=== PATIENT | male | born 1995 | race Caucasian/White ===

== ENCOUNTER 2018-10-03 22:13 | Emergency (ER) | payer SELFPAY ==
[~2018-10-03] VITALS: Ht 198.1 cm; Wt 79.8 kg
[2018-10-03 22:24] VITALS: BP 130/88; Ht 198.1 cm; Wt 79.8 kg
== END 2018-10-03 22:43 | disposition left against medical advice (07) ==
LOC: ED 22:13
DX: Z53.21 Procedure and treatment not carried out due to patient leaving prior to being seen by health care provider (principal)

== ENCOUNTER 2018-10-03 23:56 | Emergency (ER) | payer OTHER ==
[~2018-10-03] VITALS: Ht 198.1 cm; Wt 80.7 kg
[2018-10-04 00:06] VITALS: Ht 198.1 cm; Wt 80.7 kg
[2018-10-04 02:30] VITALS: BP 125/87
== END 2018-10-04 02:30 | disposition home or self-care (01) ==
LOC: ED 23:56
DX: F15.10 Other stimulant abuse, uncomplicated (principal); F17.210 Nicotine dependence, cigarettes, uncomplicated

== ENCOUNTER 2019-05-19 14:16 | Emergency (ER) | payer OTHER ==
[~2019-05-19] VITALS: Ht 203.2 cm; Wt 91.2 kg
[2019-05-19 14:20] VITALS: Ht 203.2 cm; Wt 91.2 kg
[2019-05-19 15:50] LABS: BASOPHIL % 0.3 % (0-2); PLATELET COUNT 217 x10^3mcL (130-400); RED CELL DISTRIBUTION WIDTH 13.2 % (11.5-14.5)
[2019-05-19 15:52] LABS: CALCIUM 9.3 mg/dL (8.5-10.1); CARBON DIOXIDE 25.3 mmol/L (21-32); CHLORIDE SERUM 100 mmol/L (98-107); GFR1 > 60 mL/min; GLUCOSE SERUM 121 mg/dL (74-106); POTASSIUM SERUM 3.4 mmol/L (3.5-5.1); SODIUM SERUM 139 mmol/L (136-145)
[2019-05-19 15:57] LABS: ALBUMIN 4.8 g/dL (3.4-5.0); ALKALINE PHOSPHATASE 83 U/L (46-116); ALT/SGPT 20 U/L (16-63); AST/SGOT 14 U/L (15-37); BILIRUBIN TOTAL 0.32 mg/dL (0.20-1.00); TOTAL PROTEIN, SERUM 8.4 g/dL (6.4-8.2)
[2019-05-19 16:19] LABS: microscopic required? NO
[2019-05-19 16:26] LABS: UA SPECIFIC GRAVITY 1.015 (1.005-1.035); urine erythrocyte NEGATIVE (NEGATIVE)
[2019-05-19 16:48] LABS: AMPHETAMINE QUAL UR POSITIVE (See below)
[2019-05-20 13:52] VITALS: BP 130/84
== END 2019-05-19 14:46 | disposition home or self-care (01) ==
LOC: ED 14:16
PROVIDERS: Student in an Organized Health Care Education/Training Program
DX: F23 Brief psychotic disorder (principal); F15.90 Other stimulant use, unspecified, uncomplicated
CPT/HCPCS: G0480; J2060; J2405; J3486; J7030

== ENCOUNTER 2019-05-21 02:00 | Emergency (ER) | payer OTHER ==
[~2019-05-21] VITALS: Ht 203.2 cm; Wt 93.0 kg
[2019-05-21 02:05] VITALS: Ht 203.2 cm; Wt 93.0 kg
[2019-05-21 02:36] VITALS: BP 144/102
== END 2019-05-21 02:36 | disposition other institution (70) ==
LOC: ED 02:00
DX: R07.89 Other chest pain (principal)

== ENCOUNTER 2019-05-21 02:00 | Emergency (ER) | payer OTHER | END 2019-05-21 02:36 | disposition other institution (70) | LOC: ED 02:00 | DX: Z02.89 Encounter for other administrative examinations (principal) ==